=== PATIENT | female | born 1995 | race Caucasian/White ===

== ENCOUNTER 2019-07-02 11:25 | Emergency (ER) | payer BC ==
[2019-07-02] MEDS ORDERED: TETANUS/DIPHTHERIA/PERTUSSIS 0.5 ML SYRINGE IM ONE (11:54)
[2019-07-02] MEDS ORDERED: BUFFERED LIDOCAINE 10 ML SYRINGE SUBQ STA (11:54)
--- NOTE | 2019-07-02 12:00 | ED Physician Documentation ---
History of Present Illness - Stated complaint Stated Complaint: L THUMB LAC - Chief complaint Chief Complaint: Laceration - Additonal information Additional information: Lanny Is a healthy 23-year-old female without any chronic medical illness. She is here today with a left thumb laceration. She states that she was trying to cut avocado at home with a kitchen knife when she accidentally cut her left distal thumb. She has full range of motion and sensation. She does not recall her last tetanus shot. She has no further complaints or concerns at this time. Review of Systems Constitutional: denies: Fever, Chills, Myalgias, Sweats Skin: reports: Laceration (s) Musculoskeletal: reports: Other (see hpi) Neurologic: denies: Generalized weakness, Focal weakness, Numbness PD PAST MEDICAL HISTORY - Allergies Allergies/Adverse Reactions: Allergies Allergy/AdvReac Type Severity Reaction Status Date / Time No Known Drug Allergies Allergy Verified 07/02/19 11:34 PD ED PE NORMAL - Vitals Vital signs reviewed: Yes - General General: Alert and oriented X 3, No acute distress, Well developed/nourished - HEENT HEENT: Atraumatic - Cardiac Cardiac: RRR - Respiratory Respiratory: No respiratory distress - Derm Derm: Other (There is a 2.2 cm linear laceration at the distal thumb. There is subcutaneous involvement without any exposed tendon or fascia.) - Extremities Extremities: No deformity, Normal ROM s pain, Other (She has full range of motion and strength at the distal left thumb.) - Neuro Neuro: Alert and oriented X 3, No motor deficit, No sensory deficit, Normal speech Verbal: Oriented - Psych Psych: Other (Patient is slightly anxious.) Results - Vitals Vitals: Vital Signs - 24 hr 07/02/19 11:31 Heart Rate 85 Respiratory 16 Rate Blood Pressure 125/67 O2 Saturation 97 Oxygen O2 Source Room air Procedures - Abscess I&D (location) Finger left Other: No: Other PD MEDICAL DECISION MAKING - ED course Complexity details: d/w patient Departure - Departure Disposition: 01 Home, Self Care Condition: Stable Instructions: ED Laceration All Comments: Keep your wound dry for the first 24 hours. You may continue applying [id number] antibiotic such as bacitracin. Keep your wound clean with soap and water. Do not soak your wound until your sutures removed. Have your sutures moved in 10 to 14 days. Seek care sooner for any signs and symptoms of infection including redness, swelling, foul odor, discharge, or increased pain.
[2019-07-02 12:37] VITALS: BP 119/84
[2019-07-02] MEDS ORDERED: BACITRACIN ZINC OINT 1 PACKET TOP STA (12:41)
== END 2019-07-02 12:55 | disposition home or self-care (01) ==
LOC: ED 11:25
DX: S61.012A Laceration without foreign body of left thumb without damage to nail, initial encounter (principal); W26.0XXA Contact with knife, initial encounter; Y93.G1 Activity, food preparation and clean up; Y92.000 Kitchen of unspecified non-institutional (private) residence as the place of occurrence of the external cause
CPT/HCPCS: 12001; 90471; 90715; 99282; 99283; A9270

== ENCOUNTER 2019-07-17 12:44 | Emergency (ER) | payer BC ==
[2019-07-17 12:58] VITALS: BP 115/86
--- NOTE | 2019-07-17 13:13 | ED Physician Documentation ---
History of Present Illness - Stated complaint Stated Complaint: SUTURE REMOVAL - Chief complaint Chief Complaint: General - History obtained from History obtained from: Patient - History of Present Illness Timing: How many weeks ago (2) Pain level max: 0 Pain level now: 0 - Additonal information Additional information: Patient with 2 sutures to the left thumb that were placed 2 weeks ago. Here for removal. No complications. No redness. No swelling. No fever. Nothing makes it better or worse. Review of Systems Constitutional: denies: Fever PD PAST MEDICAL HISTORY - Past Medical History Past Medical History: No - Allergies Allergies/Adverse Reactions: Allergies Allergy/AdvReac Type Severity Reaction Status Date / Time No Known Drug Allergies Allergy Verified 07/17/19 12:55 - Social History Does the pt smoke?: No Smoking Status: Never smoker PD ED PE NORMAL - Vitals Vital signs reviewed: Yes - General General: Alert and oriented X 3, No acute distress - Derm Derm: Warm and dry - Extremities Extremities: Other (Left thumb with [address] No signs of infection. Clean dry and intact) - Neuro Neuro: Alert and oriented X 3 Results - Vitals Vitals: Vital Signs - 24 hr 07/17/19 12:55 Temperature 36.9 C Heart Rate 70 Respiratory 15 Rate Blood Pressure 115/86 H O2 Saturation 97 Oxygen O2 Source Room air PD MEDICAL DECISION MAKING - ED course Complexity details: considered differential, d/w patient ED course: Nurses removed the sutures. Tolerated well. No signs of infection. This document was made in part using voice recognition software. While efforts are made to proofread this document, sound alike and grammatical errors may occur. Departure - Departure Disposition: 01 Home, Self Care Clinical Impression: Visit for suture removal Condition: Good Instructions: ED Wound Check Sutr Remove No Infec Follow-Up: your,doctor as needed [Other] Comments: The sutures were removed today. Return if you worsen. Return if you notice redness, swelling or drainage from the wound. Discharge Date/Time: 07/17/19 13:24
== END 2019-07-17 13:24 | disposition home or self-care (01) ==
LOC: ED 12:44
DX: S61.012D Laceration without foreign body of left thumb without damage to nail, subsequent encounter (principal); Z48.02 Encounter for removal of sutures
CPT/HCPCS: 99282